=== PATIENT | female | born 1930 | race Caucasian/White ===

== ENCOUNTER 2016-07-02 09:33 | Emergency (ER) | payer MEDICARE, MEDICAID ==
[2016-07-02] MEDS ORDERED: PHYTONADIONE (VIT K1) 5 MG TABLET PO ONE (09:36)
[2016-07-02 09:44] VITALS: BP 149/54
[2016-07-02] MEDS ORDERED: PHYTONADIONE (VIT K1) 5 MG TABLET ONE (09:45)
[2016-07-02] MEDS ORDERED: OXYMETAZOLINE HCL 150 SPRAY BTL ONE (09:49)
[2016-07-02 09:53] LABS: Hematocrit 39.5 % (37.0-47.0); Hemoglobin 12.7 gm/dL (12.5-16.0); Mean Corpuscular Hemoglobin 30.2 pg (27-31); Mean Corpuscular Hgb Conc 32.2 g/dl (32-36); Mean Platelet Volume 9.1 fl (6.0-9.5); Neutrophil # 3.9 K/mm3 (1.3-6.0); Neutrophil % 63.6 % (42-75.0); Platelet Count 278 K/mm3 (150-450); Red Cell Distribution Width 14.5 % (11.5-14.0); White Blood Count 6.1 K/mm3 (4.0-10.5)
[2016-07-02] MEDS ORDERED: WATER FOR INJECTION,STERILE 20 ML VIAL ONE (09:53)
[2016-07-02 09:59] LABS: Anion Gap 14.1 mmol/L (6.8-13.8); BUN/Creatinine Ratio 12.3 (9.0-21.6); Calcium * 9.1 mg/dL (7.9-10.9); Carbon Dioxide 28.6 mmol/L (24-32.6); Estimated Creat Clear 19.4; Potassium 4.7 mmol/L (3.4-4.6)
[2016-07-02] MEDS ORDERED: HYDROcodone/ACETAMINOPHEN 1 EACH TABLET PO ONE (10:04)
--- NOTE | 2016-07-02 10:27 | ERNOTE ---
ENT HPI Date of Service: 07/02/16 Presenting Symptoms: nosebleed Time Seen by Provider: 07/02/16 09:53 Source: patient, EMS Exam Limitations: no limitations - vague immediate history historian. EMS said nose bleed is left sided and started at 5 AM today. Went through 3 2X2s. On warfarin, and INR today was 3.7 - Immun/Allergies/Home Medications Immunizations: IMMUNIZATION HX Immunizations Up to Date Yes History of Influenza Vaccine Yes Hx Pneumococcal Vaccination Yes Home Medications: HOME MEDICATIONS Cephalexin [Keflex] 500 mg PO TID #9 capsule 07/02/16 [Last Taken Unknown] HYDROcodone/ACETAMINOPHEN [[place] 5-325] 1 tab PO TID #9 tab 07/02/16 [Last Taken Unknown] - History of Present Illness Severity: Present: mild ENT Location: Present: nose Prearrival Treatment: Present: nasal packing Modifying Factors - Improves: Reports: nothing Modifying Factors - Worsens: Reports: nothing Associated Symptoms - ENT: Reports: denies symptoms Prior Treament: Denies: recently seen, similar symptoms before, currently on antibiotics Review of Systems - Review of Systems Constitutional: Present: no symptoms reported EYE: Present: no symptoms reported ENT: Present: See HPI Respiratory: Present: no symptoms reported Cardiology: Present: no symptoms reported Gastrointestinal/Abdominal: Present: no symptoms reported Genitourinary: Present: no symptoms reported Musculoskeletal: Present: no symptoms reported Skin: Present: no symptoms reported Neurological: Present: no symptoms reported Endocrine: Present: no symptoms reported Hematologic/Lymphatic: Present: no symptoms reported Psych: Present: no symptoms reported All Other Systems: All systems neg except as marked - Patient's Past Medical History Patient History - Medical: Anemia, Hypothyroidism, Osteoporosis Patient History - Cardiac/Respiratory: Atrial Fibrillation, CHF - diastolic dysfunction Patient History - Cancer: No Hx of Cancer Patient History - Surgical Procedures: No surgical history LMP (females 10-50): Menopausal - Social History Living Situations: halfway Smoking Status: Never smoker Alcohol Use: none Drug Use: none Physical Exam - Physical Exam General Appearance: Present: wd/wn, alert, no apparent distress Eye Exam: Normal inspection: bilateral, PERRL: bilateral, EOMI: bilateral Ears, Nose, Throat: Present: hearing grossly normal, other - small amount of bleeding, left anterior septum Respiratory: Present: no respiratory distress, normal breath sounds Cardiovascular/Chest: Present: regular rate, rhythm, no murmur Gastrointestinal/Abdominal: Present: normal bowel sounds, nontender, nondistended, soft, no organomegaly Extremity Exam: Present: normal inspection, pedal edema Neurological Exam: Present: alert, oriented, normal mood/affect Skin Exam: Present: normal color, warm/dry ED Progress - Results and Orders Patient's Lab Results:: I have reviewed the patient's lab results. - Vital Signs Patient's Vital Signs:: I have reviewed the patient's vital signs. Vital Signs: Vital Signs 07/02/16 09:39 Temperature 36.3 C L Pulse Rate 61 Respiratory 16 Rate Blood Pressure 149/54 O2 Sat by Pulse 97 Oximetry - Progress/Reassessment Chief Complaint: Nose Bleed Procedures Complications: other - 10 ml of 1% lidocaine placed into a bottle of Afrin nose spray, sprayed three times into left nostril. Attemted to place posterior rhinorocket, but this was not tolerated. Instead placed anterior rhinorocket which was tolerated. Bleeding has stopped. Departure Clinical Impression: Anterior epistaxis - Departure Disposition: Home self-care Condition: Good Instructions: Nosebleed, [id number] Additional Instructions: Leave the nasal pack in place. See your doctor in two days. Prescriptions: Cephalexin [Keflex] 500 mg PO TID #9 capsule HYDROcodone/ACETAMINOPHEN [[place] 5-325] 1 tab PO TID #9 tab
[2016-07-02] MEDS ORDERED: HYDROcodone/ACETAMINOPHEN 1 EACH TABLET ONE (10:52)
== END 2016-07-02 11:15 | disposition home or self-care (01) ==
LOC: ER 09:33
PROC: 2Y41X5Z Packing of Nasal Region using Packing Material (ICD-10-PCS; principal; 2016-07-02)
DX: R04.0 Epistaxis (principal); Z78.0 Asymptomatic menopausal state; E03.9 Hypothyroidism, unspecified

== ENCOUNTER 2016-08-03 15:12 | Emergency (ER) | payer MEDICARE, MEDICAID ==
--- OUTSIDE RECORDS SUMMARY | 2016-08-03 15:53 | XMS REPORT | Continuity of Care Document ---
:1930 Author Organization [facility] ([facility]) Address [address] [place] [address] Phone [phone] Care Team Providers Name Role Phone FelipeChristal Primary Care Provider [phone] Source Comments This disclosure is being made pursuant to the Care Everywhere program, applicable federal and state laws, and may not contain all informaitonavailable regarding this patient.[facility] ([facility]) Active Allergies and Adverse Reactions No Known Allergies Current Medications Prescription Sig. Disp. Refills Start Date End Date Status MULTIVITAMINS take by mouth. Active (MULTIVITAMIN PO) FERROUS FUMARATE (IRON take by mouth. Active PO) OTHER Patient is now on 2 Active different BP pills. She does not know what they are. LEVOTHYROXINE SODIUM take 137 mcg by Active (SYNTHROID PO) mouth. benazepril-hydrochlorthia take 1 Tab by mouth Active zide (LOTENSIN HCT) daily. 20-12.5 mg per tablet lisinopril-hydrochlorothi Take 1 Tab by mouth Active azide 20-25 mg per tablet daily. FOLIC ACID PO Take 1,000 mcg by Active mouth daily. cyanocobalamin (VITAMIN Take 1,000 mcg by Active B-12) 1,000 mcg tablet mouth daily. 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 Right Eye Left Eye Time To Recurrence: Time To Recurrence: Date VA (D cc) CMT Status Procedure VA (D cc) CMT Status Procedure Cmts 12/15/2008 20/100 -1 318 Wet Avastin 20/125 612 eccentic VA 01/19/2009 20/150 334 Wet Avastin #[id number] 20/150 03/02/2009 20/150 -2 228 Wet Avastin #[id number] CF 5ft 637 05/26/2009 20/100 Avastin 20/125 Avastin Social History Tobacco Use Types Packs/Day Years Used Date Never Smoker Alcohol Use Drinks/Week oz/Week Comments No Last Filed Vital Signs Vital Sign Reading Time Taken Blood Pressure 141/75 10/04/2011 1:42 PM CDT Pulse 109 10/04/2011 1:42 PM CDT Temperature 37.6 C (99.7 F) 10/04/2011 1:42 PM CDT Respiratory Rate - - Height 1.575 m (5' 2") 10/04/2011 1:42 PM CDT Weight 96.571 kg (212 lb 14.4 oz) 10/04/2011 1:42 PM CDT Body Mass Index 38.93 10/04/2011 1:42 PM CDT Oxygen Saturation - - Plan of Care Health Maintenance Due Date Last Done Comments Hepatitis B Vaccine (1 of 3 - Primary Series) 1930 Tdap Vaccine 11/06/1942 Lipid Disorder Screening 11/06/1949 Td Vaccine 11/06/1949 Colonoscopy 11/06/1981 Zoster Vaccine 1991 Osteoporosis Screening (DXA Bone Density) 11/06/1996 Pneumococcal Vaccine (1 of 2 - PCV13) 11/06/1996 Influenza Vaccine: Seasonal (#1) 01/10/2016 Results from Last 3 Months Not on file
--- NOTE | 2016-08-03 15:57 | ERNOTE ---
Lower Extremity HPI - Narrative Date of Service: 08/03/16 - General Lower Extremities Pain: leg: left Time Seen by Provider: 08/03/16 15:28 Source: patient Exam Limitations: no limitations - Immun/Allergies/Home Medications Immunizations: IMMUNIZATION HX Immunizations Up to Date Yes History of Influenza Vaccine Yes Hx Pneumococcal Vaccination Yes Allergies/Adverse Reactions: Allergies Allergy/AdvReac Type Severity Reaction Status Date / Time No Known Allergies Allergy Verified 08/03/16 15:33 Home Medications: HOME MEDICATIONS Amiodarone HCl [Cordarone] 200 mg PO BID 07/02/16 [Last Taken Unknown] Atorvastatin Calcium 10 mg PO HS 07/02/16 [Last Taken Unknown] Beta-Carotene(A) W-C , E/Min [Ocuvite] 1 tab PO DAILY 07/02/16 [Last Taken Unknown] Clopidogrel Bisulfate [Plavix] 75 mg PO DAILY 07/02/16 [Last Taken Unknown] Cyanocobalamin [Vitamin B-12] 1,000 mcg PO DAILY 07/02/16 [Last Taken Unknown] Folic Acid 1 mg PO DAILY 07/02/16 [Last Taken Unknown] Furosemide [Lasix] 40 mg PO DAILY 07/02/16 [Last Taken Unknown] Levothyroxine Sodium [Synthroid] 150 mcg PO DAILY 07/02/16 [Last Taken Unknown] Polyethylene Glycol 3350 [Miralax] 17 gm PO DAILY 07/02/16 [Last Taken Unknown] Carvedilol [Coreg] 3.125 mg PO BID 08/03/16 [Last Taken Unknown] - History of Present Illness Narrative: Pt. comes in with c/o LLE redness and swelling for one day. Pt. comes from the [place] and pt. care givers state taht this was first noticed this morning but pt. was recently hypercoagulated at her last INR clinic check and her scheduled coumadin was stopped. Pt. denies any CP, SOB, numbness or tingling. Pt. denies any recent illness or injury but pt. does have a history of CHF. Review of Systems - Review of Systems Constitutional: Present: no symptoms reported. Absent: recent illness, fever, chills, weakness, fatigue, malaise EYE: Present: no symptoms reported ENT: Present: no symptoms reported. Absent: nose pain, nose congestion, nasal drainage, sore throat Respiratory: Present: no symptoms reported. Absent: shortness of breath, cough , wheezing Cardiology: Present: no symptoms reported. Absent: chest pain, palpitations, edema Gastrointestinal/Abdominal: Present: no symptoms reported. Absent: nausea, vomiting, diarrhea Genitourinary: Present: no symptoms reported Musculoskeletal: Present: other - LLE redness. Absent: muscle pain, joint pain , joint swelling Skin: Present: no symptoms reported. Absent: rash, change in color, change in hair/nails Neurological: Present: no symptoms reported. Absent: headache, dizziness/light- headedness, numbness, tingling All Other Systems: All systems neg except as marked - Patient's Past Medical History Patient History - Medical: Anemia, Hypothyroidism, Osteoporosis Patient History - Cardiac/Respiratory: CHF, CVA/Stroke, Hypertension, Hyperlipidemia, Pulmonary Embolism Patient History - Cancer: No Hx of Cancer Patient History - Surgical Procedures: No surgical history Patient History - Other: None - Social History Living Situations: longterm Abuse History: No History of abuse Psych History: No pertinent hx Alcohol Use: none Drug Use: none - Immunizations Immunizations Up to Date: Yes Hx Pneumococcal Vaccination: Yes History of Influenza Vaccine: Yes Physical Exam - Physical Exam General Appearance: Present: wd/wn, alert, no apparent distress Eye Exam: Normal inspection: bilateral, PERRL: bilateral, EOMI: bilateral Ears, Nose, Throat: Present: normal ENT inspection, hearing grossly normal, normal pharynx Neck: Present: normal inspection, nontender. Absent: lymphadenopathy (R), lymphadenopathy (L) Respiratory: Present: no respiratory distress, normal breath sounds, no accessory muscle use, chest nontender, lungs clear, decreased breath sounds - bases Cardiovascular/Chest: Present: regular rate, rhythm, no murmur, normal peripheral pulses Gastrointestinal/Abdominal: Present: nontender Back Exam: Present: normal inspection Extremity Exam: Present: extremity edema - LLE knee to toes +3 RLE trace, BLE keritinic skin and hemosiderin staining, other - redness of LLE . Absent: calf tenderness Neurological Exam: Present: alert, oriented, normal mood/affect, no motor/ sensory deficits Skin Exam: Present: warm/dry, other - redness LLE from knee to ankle with bruising and hematome proximal frontal rivera ED Progress - Date and Time Seen: Date and Time: 08/03/16 16:[address] Matilde doyle and he recommends increasing her lasix to 80 mg daily and starting her on Keflex and checking a CBC, CMP, and PT/INR on Sunday. - Results and Orders Patient's Lab Results:: I have reviewed the patient's lab results. - Vital Signs Patient's Vital Signs:: I have reviewed the patient's vital signs. Vital Signs: Vital Signs 08/03/16 15:30 Temperature 37.0 C Pulse Rate 56 L Respiratory 20 Rate Blood Pressure 129/42 O2 Sat by Pulse 94 Oximetry - EKG EKG: other - sinus joseph with lateral previous damage, no acute EKG read: Interp. by me - CT/Ultrasound CT/Ultrasound Narrative: us LLE negative for DVT - Progress/Reassessment Chief Complaint: Lower Extremity Pain/ Injury Progress:: Unchanged Departure Clinical Impression: Hematoma Cellulitis Qualifiers: Site of cellulitis: extremity Site of cellulitis of extremity: lower extremity Laterality: left Qualified Code(s): L03.116 - Cellulitis of left lower limb CHF (congestive heart failure) Qualifiers: Congestive heart failure type: unspecified congestive heart failure type Congestive heart failure chronicity: chronic Qualified Code(s): I50.9 - Heart failure, unspecified - Departure Disposition: The Tigist Condition: Good Referrals: Lloyd Patton MD [Primary Care Provider] -
[2016-08-03 16:10] LABS: Hematocrit 30.1 % (37.0-47.0); Hemoglobin 9.7 gm/dL (12.5-16.0); Mean Cell Volume 95.3 fl (78-100); Mean Corpuscular Hemoglobin 30.7 pg (27-31); Mean Corpuscular Hgb Conc 32.2 g/dl (32-36); Mean Platelet Volume 10.2 fl (6.0-9.5); Neutrophil # 4.2 K/mm3 (1.3-6.0); Neutrophil % 61.7 % (42-75.0); Platelet Count 322 K/mm3 (150-450); Red Blood Count 3.16 M/mm3 (4.2-5.4); Red Cell Distribution Width 13.9 % (11.5-14.0); White Blood Count 6.8 K/mm3 (4.0-10.5)
[2016-08-03 16:22] LABS: INR 2.98 INR (0.90-1.10)
[2016-08-03 16:35] LABS: Albumin * 2.8 gm/dl (3.4-5.0); Anion Gap 14.3 mmol/L (6.8-13.8); BUN/Creatinine Ratio 16.1 (9.0-21.6); Bilirubin, Total 1.4 mg/dL (0.0-1.1); Ca. Corrected For Albumin 9.2 mg/dL (8.4-10.2); Calcium * 8.6 mg/dL (7.9-10.9); Carbon Dioxide 26.3 mmol/L (24-32.6); Potassium 4.6 mmol/L (3.4-4.6); Troponin I 0.017 ng/ml (0.00-0.10)
[2016-08-03] MEDS ORDERED: FUROSEMIDE 40 MG TABLET PO ONE (16:59)
[2016-08-03] MEDS ORDERED: FUROSEMIDE 40 MG TABLET ONE (17:08)
[2016-08-03 17:27] VITALS: BP 132/84
== END 2016-08-03 17:38 ==
LOC: ER 15:12
DX: S80.12XA Contusion of left lower leg, initial encounter (principal); L03.116 Cellulitis of left lower limb; I50.9 Heart failure, unspecified; E03.9 Hypothyroidism, unspecified; Z86.73 Personal history of transient ischemic attack (TIA), and cerebral infarction without residual deficits